=== PATIENT | male | born 1950 | race Caucasian/White ===

== ENCOUNTER 2019-10-01 06:25 | Day surgery (SDC) | payer MEDICARE ==
[2019-10-01] VITALS (10 sets, daily range): BP systolic 126–190; BP diastolic 66–98
[~2019-10-01] VITALS: Ht 165.1 cm; Wt 104.1 kg
[2019-10-01] MEDS ORDERED: LACTATED RINGERS 1,000 ML IV PRN (06:35)
[2019-10-01] MEDS ORDERED: AMPICILLIN/SULBACTAM INJECTION 1.5 GM in NS (IVPB) 100 ML IV ONE (06:45)
[2019-10-01] MEDS ORDERED: ONDANSETRON 4 MG/2 ML (SDV) Z0FRAN ONE (06:48)
[2019-10-01] MEDS ORDERED: proPOfol 200 MG/20 ML (DIPRIVAN) VIAL IV ONE (06:48)
[2019-10-01] MEDS ORDERED: LIDOCAINE PF 2% 5 ML (XYLOCAINE) VIAL ONE (06:48)
[2019-10-01] MEDS ORDERED: MIDAZOLAM 2 MG/2 ML (VERSED) VIAL ONE (06:49)
[2019-10-01] MEDS ORDERED: fentaNYL INJECTION 100 MCG/2 ML AMP ONE (06:49)
[2019-10-01] MEDS ORDERED: SEVOFLURANE (ULTANE) 15 ML INHAL SOLN ONE ×3 (06:54→08:25)
--- NOTE | 2019-10-01 07:08 | Progress Note-Pre Operative ---
Pre-Operative Progress Note H&P Reviewed The H&P was reviewed, patient examined and no changes noted. 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
[2019-10-01] MEDS ORDERED: LIDOCAINE/EPI 1%-1:100,000 (XYLOCAINE) 20ML ONE (07:20)
[2019-10-01] MEDS ORDERED: PHENYLEPHRINE 0.5% NASAL SPR (NEO-SYNEPHRINE) REG ONE (07:20)
[2019-10-01] MEDS ORDERED: D5 1/2 NS W/KCL 20 MEQ/L 1,000 ML IV SCH (07:50)
--- NOTE | 2019-10-01 07:50 | Progress Note-Post Operative ---
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 Specimen(s) collected/removed none GEORGES JACOBSON MD Oct 01, 2019 07:50
[2019-10-01] MEDS ORDERED: ACETAMINOPHEN 325 MG TABLET PO PRN (08:00)
[2019-10-01] MEDS ORDERED: GLYCOPYRROLATE 0.2 MG/ML (ROBINUL) 2 ML VIAL ONE (08:17)
[2019-10-01] MEDS ORDERED: ROCURONIUM 10 MG/ML 5 ML SYRINGE IV ONE (08:17)
[2019-10-01] MEDS ORDERED: NEOSTIGMINE 3 MG/3 ML VIAL ONE (08:17)
[2019-10-01] MEDS ORDERED: ACETAMINOPHEN 325 MG TABLET ONE (09:39)
--- NOTE | 2019-10-02 14:18 | Anesthesia-General Post-Op ---
General Significant Intra-Op Events Notes late entry 09/30 929 Patient Condition Mental Status/LOC: Same as Preop Cardiovascular: Satisfactory Nausea/Vomiting: Absent Respiratory: Satisfactory Pain: Controlled Complications: Absent Post Op Complications Complications None Follow Up Care/Instructions Patient Instructions None needed. Anesthesia/Patient Condition Patient Condition Patient is doing well, no complaints, stable vital signs, no apparent adverse anesthesia problems. No complications reported per nursing. FIONA PEREIRA CRNA Oct 02, 2019 14:18
== END 2019-10-01 10:40 | disposition home or self-care (01) ==
LOC: SDC 06:25 → EDSTATUS 07:30 → SDC 10:40
PROVIDERS: ATTEND Otolaryngology Otolaryngology/Facial Plastic Surgery
DX: J34.3 Hypertrophy of nasal turbinates (principal); R09.81 Nasal congestion; Z96.653 Presence of artificial knee joint, bilateral